=== PATIENT | male | born 1955 | race Caucasian/White ===

== ENCOUNTER 2025-02-19 12:43 | Inpatient (IN) | payer MEDICARE, SELFPAY ==
[2025-02-19] VITALS (16 sets, daily range): BP systolic 98–142; BP diastolic 52–76; PULSE 60–73; RESP 9–19; TEMP 36.2–36.9; O2SAT 94–100; BMI 27.2
--- NOTE | 2025-02-19 | ECG_ITS ---
Test Reason : SYNCOPE Blood Pressure : */* mmHG Vent. Rate : 62 BPM Atrial Rate : 62 BPM P-R Int : 186 ms QRS Dur : 106 ms QT Int : 470 ms P-R-T Axes : 25 -7 34 degrees QTcB Int : 477 ms Normal sinus rhythm Normal ECG No previous ECGs available Referred By: Generic ED Physician Electronically Signed By: Chinedu Raygoza
--- NOTE | ~2025-02-19 | CT_ITS ---
CLINICAL HISTORY: slurred speech weakness CT Brain without contrast Comparison: None FINDINGS: Cortical sulci: There is diffuse prominence of the cortical sulci compatible with age-related atrophy. Ventricles: Normal for age Brain parenchyma: There is patchy lucency throughout the deep white matter indicating chronic microvascular leukomalacia. Extra axial spaces: Normal Posterior Fossa: Normal Extracranial soft tissues: Normal Additional abnormality: None IMPRESSION: Age-related atrophy with chronic microvascular leukomalacia. No hemorrhage, mass effect, or acute findings identified. This document has been electronically signed by: Colin Christopher MD on 02/19/2025 14:01:57
--- NOTE | ~2025-02-19 | MR_ITS ---
CLINICAL HISTORY: left facial droop, dysarthria MR Brain without gadolinium Comparison: None provided Findings: Mild global cerebral volume loss, age-appropriate No restricted diffusion. No intra-axial mass or hemorrhage. No midline shift. No hydrocephalus. Vascular flow voids are intact. The orbits are normal. The sinuses and mastoid air cells are clear. No focal bone lesion. IMPRESSION: No acute infarct or other acute finding. This document has been electronically signed by: Cleveland Stone MD on 02/19/2025 19:42:12
--- NOTE | ~2025-02-19 | CT_ITS ---
CLINICAL HISTORY: slurred speech weakness CT angiography head and neck with contrast. 3D Postprocessing. Comparison: None provided Findings: Atherosclerosis calcification of the carotid bulb and cavernous segment of the internal carotid artery. No stenoses of the carotid arteries. Convoluted bilateral internal carotid artery. There is calcification of the origin of the right vertebral artery with possible stenoses. Intracranial arteries are patent. No aneurysm, dissection, hemodynamically significant stenoses, or occlusion. No abnormal intracranial enhancement. The visualized thyroid gland is unremarkable. No cervical mass or fluid collection. Lung apices clear. No acute fracture. IMPRESSION: No stenoses of the carotid arteries. Calcification of the origin of the right vertebral artery with possible stenoses. Patent head CTA. This document has been electronically signed by: Colin Christopher MD on 02/19/2025 14:55:55
--- NOTE | 2025-02-19 13:10 | PC.NURSE ---
kennedy from [place] while eating lunch. pt report he started to felt dizzy/nauseous. self ambulated to restroom where he then felt like he was going to pass out. self guided himself to floor. +witnessed syncopal episode for a few seconds. assisted by bystanders. no trauma noted. -headstrike, +thinners (xarelto). hx NV/stent placement. pt denies any chest pain/palpitations/sob. hx DM - blood sugar WNL upon arrival. upon ED arrival - pt a&ox4. vss and up to date. pt answering questions/following commands appropriately. vss and up to date. nsr on the radiation monitor. 20gIV in the right AC via EMS - patent/intact. labs obtained/ekg obtained by tech. pt currently denies any dizziness/lightheadedness/change in vision. pt states he is feeling better. currently bedside for support. on RA w/o difficulty - no sob/wob noted. respirations even/unlabored. plan of care ongoing. call rodrigues placed within reach.
[2025-02-19 13:11] LABS: MANUAL DIFF FLAG NO
[2025-02-19 13:14] LABS: Hematocrit 35.3 % (42.0-52.0); Hemoglobin 12.6 g/dl (14.0-18.0); Imm Gran Abs Auto 0.04 X10*3/uL (0.00-0.03); Imm Gran Pct Auto 0.4 % (0.0-0.4); Lymphocytes Absolute Auto 1.4 X10*3/uL (1.2-4.9); Mean Corpuscular HGB Conc 35.7 g/dl (31.0-36.0); Mean Corpuscular Hemoglobin 31.5 pg (27.0-33.0); Mean Corpuscular Volume 88.3 fL (80.0-98.0); NRBC Abs Auto 0.000 X10*3/uL (0.0-0.012); NRBC Pct Auto 0.0 /100WBC (0.0-0.2); Platelet Count 196 X10*3/uL (160-400); Red Blood Count 4.00 X10*6/uL (4.60-5.80); White Blood Count 9.2 X10*3/uL (4.8-10.8)
[2025-02-19 13:30] LABS: Alanine Aminotransferase 19 U/L (0-40); Albumin Level 4.0 g/dL (3.5-5.0); Alkaline Phosphatase 52 U/L (39-117); Anion Gap 13 (12-20); Aspartate Amino Transferase 19 U/L (5-37); Blood Urea Nitrogen 15 mg/dL (9-16); Calcium 8.7 mg/dL (8.4-10.2); Carbon Dioxide 23 mmol/L (22-29); Chloride 107 mmol/L (96-108); Creatinine Clr Calc Pharmacy 78.5; Estimated Glomerular Filt Rate > 60; INTERNATIONAL NORM RATIO 1.1 (0.9-1.1); Magnesium 1.6 mg/dL (1.6-2.6); Partial Thromboplastin Time 27.7 SEC (26.7-34.1); Potassium 4.4 mmol/L (3.3-5.1); Prothrombin Time 13.0 SEC (10.9-12.4); Sodium 139 mmol/L (135-145); Total Protein 6.2 g/dL (6.5-8.0)
--- NOTE | 2025-02-19 13:32 | ED.SYNCOPE ---
HPI - Syncope General Chief Complaint: Syncope Stated Complaint: FALL WITH LOC Time Seen by Provider: 02/19/25 12:50 Source: patient and EMS Mode of arrival: ambulatory Limitations: no limitations History of Present Illness ED Provider: CHU Luu HPI narrative: this is a 69-year-old male history of hypertension, diabetes, hyperlipidemia, on anticoagulation he tells me it is for his since presenting to the emergency department status post syncopal episode prior to arrival last known well time was around 12 15 this afternoon. Patient reports he was standing he felt lightheaded and like he was going to pass out he carefully lowered himself to the ground. No head strike or loss of consciousness. He reports he just feels overall unwell, weak, not himself and he tells me he is extremely thirsty. Related Data Allergies Allergy/AdvReac Type Severity Reaction Status Date / Time No Known Allergies Allergy Verified 02/19/25 12:56 Review of Systems Review of Systems: Yes all other systems are reviewed and are negative [facility] Past Medical History Attestation statement: The following information was validated with the patient. Source: old records reviewed and nursing notes reviewed Social History Social History Alcohol intake: current Alcohol intake frequency: holidays/special occasions only Smoked in Last 30 Days: No Use of substances other than those prescribed or required for medical reasons: No Advance Directives: Yes Advance Directives Information Provided: No Advance Directives on File: No Do you have a plan to hurt others: No Plan Physical Exam Exam: Exam: Appearance: Alert.? Oriented X3.? No acute distress.? Head: Normocephalic, atraumatic, no step-offs or deformities + left sided facial droop Eyes: Pupils equal, round and reactive to light.? ENT: Pharynx normal.? Neck: Normal inspection.? Neck supple.? CVS: Normal heart rate and rhythm.? Pulses normal.? Respiratory: No respiratory distress.? Breath sounds normal.? Abdomen: Soft and nontender.? Skin: Skin warm and dry.? Normal skin color.? Normal skin turgor.? Extremities: No lower extremity edema.? No calf ttp. 5/5 strength to bilateral upper and lower extremities . Negative Romberg and pronator drift. Back: No midline tenderness, no C-spine tenderness, full range of motion, no CVA tenderness bilaterally Neuro: Oriented X 3.? No motor deficit.? No sensory deficit. CN 2-12 intact . Normal [id number], iymv-pb-vncf. Vital Signs: Vital Signs: Last Vital Signs Temp 97.2 F 02/19/25 13:56 Pulse 67 02/19/25 14:53 Resp 13 02/19/25 14:53 BP 113/63 02/19/25 14:53 Pulse Ox 94 02/19/25 14:53 O2 Del Method Room Air 02/19/25 14:53 BMI result Body Mass Index 27.2 Course Reevaluation(s) Reevaluation #1: Patient's CBC with a normocytic anemia. No baseline labs to compare with however stable. Chemistry no acute findings needing intervention. Troponin negative, EKG nonischemic. Coagulation studies unremarkable. I did discuss this case with Dr. Santos neurology, explained to him he is on Xarelto now TNK candidate. I do not suspect LVO. Patient will likely be admitted to the hospital for CVA And syncope Time: 15:11 Medications Administered Discontinued Medications Generic Name Dose Route Start Last Admin Trade Name Freq PRN Reason Stop Dose Admin Iohexol 100 ml 02/19/25 13:50 02/19/25 13:51 Iohexol 350 Mg/Ml 100 Ml Infus..Btl IV 02/19/25 13:51 70 ml ONCE ONE Administration Medical Decision Making Medical Decision Making [facility] Narrative: 1333 69-year-old male presents status post syncopal episode prior to arrival. Only complaint is diffuse weakness and overall feeling unwell. He is on blood thinners. Last known well time 12:15. Upon my assessment I note that he has a slight left-sided facial droop and seems to be slightly slurring his speech PE no focal deficits but slight left sided facial droop and slight slurrring of speech Concerned for stroke. Will rule out ICH. will also rule out cardiac etiologies and electrolyte abnormalities. Plan stroke alert called at this time. NIH Stroke Scale/Score (NIHSS) from [employer] on 02/19/2025 All calculations should be rechecked by clinician prior to use RESULT SUMMARY: 2 points NIH Stroke Scale INPUTS: 1A: Level of consciousness ?> 0 = Alert; keenly responsive 1B: Ask month and age ?> 0 = Both questions right 1C: 'Blink eyes' & 'squeeze hands' ?> 0 = Performs both tasks 2: Horizontal extraocular movements ?> 0 = Normal 3: Visual smalls ?> 0 = No visual loss 4: Facial palsy ?> 1 = Minor paralysis (flat nasolabial fold, smile asymmetry) 5A: Left arm motor drift ?> 0 = No drift for 10 seconds 5B: Right arm motor drift ?> 0 = No drift for 10 seconds 6A: Left leg motor drift ?> 0 = No drift for 5 seconds 6B: Right leg motor drift ?> 0 = No drift for 5 seconds 7: Limb Ataxia ?> 0 = No ataxia 8: Sensation ?> 0 = Normal; no sensory loss 9: Language/aphasia ?> 1 = Mild-moderate aphasia: some obvious changes, without significant limitation 10: Dysarthria ?> 0 = Normal 11: Extinction/inattention ?> 0 = No abnormality Differential Diagnosis Differential Diagnoses: The differential diagnosis associated with the presentation includes ( Concerned for stroke. Will rule out ICH. will also rule out cardiac etiologies and electrolyte abnormalities.) Admission/Observation Consideration of admission/observation: Escalation of care including admission/observation considered (possible ) Consult Healthcare Provider Management of the patient was discussed with: Commissioner Of Conciliation ( Dr. Santos neurology) Lab Data MDM Lab Attestation statement: I reviewed the patient's lab results. 02/19/25 13:07 02/19/25 13:07 Labs: Lab Results 02/19/25 02/19/25 Range/Units 13:07 13:35 WBC 9.2 (4.8-10.8) X10*3/uL RBC 4.00 L (4.60-5.80) X10*6/uL Hgb 12.6 L (14.0-18.0) g/dl Hct 35.3 L (42.0-52.0) % MCV 88.3 (80.0-98.0) fL MCH 31.5 (27.0-33.0) pg MCHC 35.7 (31.0-36.0) g/dl RDW 13.1 (11.0-16.0) % Plt Count 196 (160-400) X10*3/uL MPV 10.3 (9.4-12.4) fL Immature Gran % (Auto) 0.4 (0.0-0.4) % Neut % (Auto) 72.6 (45-73) % Lymph % (Auto) 14.9 L (20-40) % [place] % (Auto) 8.2 (2-11) % Eos % (Auto) 3.1 (0-4) % Baso % (Auto) 0.8 (0-2) % Lymph # (Auto) 1.4 (1.2-4.9) X10*3/uL [place] # (Auto) 0.8 (0.1-1.2) X10*3/uL Eos # (Auto) 0.3 (0.0-0.4) X10*3/uL Baso # (Auto) 0.1 (0.0-0.2) X10*3/uL Abs Immat Gran (auto) 0.04 H (0.00-0.03) X10*3/uL Absolute Neuts (auto) 6.7 (2.0-8.3) x10*3/uL Absolute Nucleated RBC 0.000 (0.0-0.012) X10*3/uL Nucleated RBC % (auto) 0.0 (0.0-0.2) /100WBC PT 13.0 H (10.9-12.4) SEC INR 1.1 (0.9-1.1) APTT 27.7 (26.7-34.1) SEC Sodium 139 (135-145) mmol/L Potassium 4.4 (3.3-5.1) mmol/L Chloride 107 (96-108) mmol/L Carbon Dioxide 23 (22-29) mmol/L Anion Gap 13 (12-20) BUN 15 (9-16) mg/dL Creatinine 0.96 (0.5-1.4) mg/dL Estim Creat Clear Calc 78.5 Estimated GFR > 60 POC Glucose 154 H (60-115) mg/dL Random Glucose 135 H (60-115) mg/dL Calcium 8.7 (8.4-10.2) mg/dL Magnesium 1.6 (1.6-2.6) mg/dL Total Bilirubin 0.6 (0.0-1.0) mg/dL AST 19 (5-37) U/L ALT 19 (0-40) U/L Alkaline Phosphatase 52 (39-117) U/L Troponin I High Sens < 2.7 (<3.5-35.0) ng/L Total Protein 6.2 L (6.5-8.0) g/dL Albumin 4.0 (3.5-5.0) g/dL Independent Interpretation I performed an independent interpretation of an: EKG ( nonischemic) and CT Scan (negative for large vessel occlusion, intracranial hemorrhage) Radiology Impression Discussion of test interpretation with radiology: I have reviewed the radiologist's reading. Chronic Conditions Patient?s care impacted by: Hypertension Critical Care Time Critical Care Time Critical Care Time: Yes Total Critical Care Time: 45 Attestation: I attest to this time spent taking care of the patient, obtaining history, physical, reviewing labs, imaging, treatment of patients condition +/- specialist/hospitalist consult +/- procedure Discharge Plan Discharge Clinical Impression: Syncope, Acute CVA (cerebrovascular accident) Patient Disposition: Admitted As Inpatient Print Language: Latvian
[2025-02-19 13:37] LABS: Glucose, Whole Blood 154 mg/dL (60-115)
[2025-02-19 13:38] LABS: Troponin-I High Sensitivity < 2.7 ng/L (<3.5-35.0)
--- NOTE | 2025-02-19 13:42 | PC.NURSE ---
stroke work up initiated by provider. IV access tubing switched by this RN. POC obtained by tech. stroke PT/INR testing unable to be performed d/t equipment not being properly stocked in stroke box. provider bedside/aware. will obtain equipment needed from the lab/complete PT/INR testing when patient returns from CT. pt currently in CT at this time. plan of care ongoing.
--- NOTE | 2025-02-19 13:43 | MHC.EDTECH ---
this tech went to obtain stroke alert PT/INR, pieces of protocol equipment were missing, CHU jackson made aware, PA said to this tech to postpone PT/INR check, pt en route to CT scan.
[2025-02-19] MEDS: iohexoL 350 MG/ML 100 ML INFUS..BTL IV (13:51)
--- NOTE | 2025-02-19 14:25 | PC.NURSE ---
vss and up to date. nsr on the athletic monitor. neuros remain intact. face symmetrical. no slur in speech. strength equal bilaterally in all extremities. no pronator drift noted. pt currently denies any dizziness/headache/change in vision. on RA w/o difficulty. no sob/wob noted. respirations even/unlabored. pending scan results at this time. family bedside for support. plan of care ongoing. call rodrigues placed within reach.
--- NOTE | 2025-02-19 15:28 | P.HPHOSP_ITS ---
History of Present Illness Date of Service: 02/19/25 Chief Complaint: slurred speech 69M PMH CAD s/p stents, pafib on xarelto, DM, presented with syncope. Patient was feeling well on day of presentation. Went to restaurant, started to feel lightheaded dizzy nauseous. Went to restroom and urinated and then briefly passed out. Did not fall to the ground, did not have trauma. Lost consciousness for about 1 minute. EMS was called. On waking up patient was out of it noted left facial droop and dysarthria. This eventually resolved after about 1 hour. In ED, glucose normal, CTA head and neck with no acute stroke. Review of Systems 2 Review of Systems: Yes all other systems are reviewed and are negative [facility] Medical History (Updated 02/19/25 @ 15:33 by Matias Cabrera MD) CAD (coronary artery disease) Social History Alcohol intake: current Alcohol intake frequency: holidays/special occasions only Patient Tobacco Use Status: Never used Tobacco Smoked in Last 30 Days: No Use of substances other than those prescribed or required for medical reasons: No Advance Directives: Yes Advance Directives Information Provided: No Advance Directives on File: No Do you have a plan to hurt others: No Plan Nutrition Risks: No Nutritional Risk Meds Allergies Allergy/AdvReac Type Severity Reaction Status Date / Time No Known Allergies Allergy Verified 02/19/25 12:56 Active Medications: Current Medications Acetaminophen (Acetaminophen 325 Mg Tablet) 650 mg PO Q6H PRN PRN Reason: Pain, Mild 1-3,fever,headache Calcium Carbonate (Calcium Carbonate 750 Mg Tab.Chew) 750 mg PO Q4H PRN PRN Reason: Heartburn Magnesium Hydroxide (Milk Of Magnesia 30 Ml Oral.Susp) 30 ml PO DAILY PRN PRN Reason: Constipation Magnesium Hydroxide (Milk Of Magnesia 30 Ml Oral.Susp) 30 ml PO DAILY PRN PRN Reason: Constipation Melatonin (Melatonin 3 Mg Tablet) 6 mg PO BEDTIME PRN PRN Reason: Insomnia Sodium Chloride (0.9 % Sodium Chloride Flush 3 Ml Syringe) 3 ml IVFLUSH QSHIFT JUS Physical Exam 2 Vital Signs and Narrative: Vital Signs: Last Vital Signs Temp 97.2 F 02/19/25 13:56 Pulse 68 02/19/25 15:12 Resp 12 02/19/25 15:12 BP 113/60 02/19/25 15:12 Pulse Ox 97 02/19/25 15:12 O2 Del Method Room Air 02/19/25 15:12 BMI result Body Mass Index 27.2 General: AO X 3, no acute distress Resp: CTA bilateral, no accessory muscles used CVS: S1,S2,RRR GI: soft, non tender, non distended Neuro: motor grossly intact, alert Psych: appropriate affect, appropriate insight Results Labs 02/19/25 13:07 02/19/25 13:07 Labs: Laboratory Results - last 24 hr 02/19/25 02/19/25 13:07 13:35 MCV 88.3 MCH 31.5 MCHC 35.7 RDW 13.1 Plt Count 196 MPV 10.3 Immature Gran % (Auto) 0.4 Neut % (Auto) 72.6 Lymph % (Auto) 14.9 L [place] % (Auto) 8.2 Eos % (Auto) 3.1 Baso % (Auto) 0.8 Lymph # (Auto) 1.4 [place] # (Auto) 0.8 Eos # (Auto) 0.3 Baso # (Auto) 0.1 Abs Immat Gran (auto) 0.04 H Absolute Neuts (auto) 6.7 Absolute Nucleated RBC 0.000 Nucleated RBC % (auto) 0.0 PT 13.0 H INR 1.1 APTT 27.7 Anion Gap 13 Estim Creat Clear Calc 78.5 Estimated GFR > 60 POC Glucose 154 H Random Glucose 135 H Calcium 8.7 Magnesium 1.6 Total Bilirubin 0.6 AST 19 ALT 19 Alkaline Phosphatase 52 Total Protein 6.2 L Albumin 4.0 Assessment and Plan (1) CAD (coronary artery disease): Status: Acute Plan 69M PMH CAD s/p stents, pafib on xarelto, DM, presented with syncope syncope likely vasovagal vs orthostatic left facial droop and dysarthria rule out cva mri, echo, neuro eval, continue plavix, xarelto, statin cad xarelto, statin pafib xarelto, metoprolol DM insulin dvt prophylaxis - xarelto full code Quality Stroke Does the patient have a stroke diagnosis?: Yes Reason for No Anti-thrombotic by Day Two: N/A - Med Ordered VTE Prior VTE?: No VTE Risk Level:: Medical - moderate - high VTE Device Contraindication: Treatment Not Indicated VTE Drug Contraindication: N/A - Med Ordered
--- NOTE | 2025-02-19 16:07 | PC.NURSE ---
pt passed nursing swallow evaluation w/o difficulty. neuros remain intact.
[2025-02-19 16:41] LABS: Glucose, Whole Blood 113 mg/dL (60-115)
--- NOTE | 2025-02-19 16:52 | PHA.MEDREC ---
Pharmacy Consult ? Medication Reconciliation Pharmacy has completed the medication reconciliationMed rec complete. Spoke to patient and compared with pharmacy claim history. Patient had a very detailed medication list from home.
[2025-02-19] MEDS: 0.9 % Sodium Chloride Flush 3 ML SYRINGE IVFLUSH (16:53)
--- NOTE | 2025-02-19 17:01 | PC.NURSE ---
vss and up to date. nsr on the endocrinology teacher. neuros remain intact. pt currently pending MRI to be completed/pending bed assignment. bedside for support. plan of care ongoing. call rodrigues placed within reach.
--- NOTE | 2025-02-19 18:10 | PC.NURSE ---
pt to MRI at this time.
--- NOTE | 2025-02-19 18:41 | MHC.EDTECH ---
POC delayed to pt being in MRI
[2025-02-19 20:43] LABS: Glucose, Whole Blood 197 mg/dL (60-115)
[2025-02-20] VITALS (12 sets, daily range): BP systolic 109–156; BP diastolic 53–80; PULSE 63–73; RESP 16–18; TEMP 36.3–37.1; O2SAT 95–99; BMI 26.4
--- NOTE | 2025-02-20 | EEG_ITS ---
Reason For EEG: syncope Medications:Tylenol, atorvastatin calcium, calcium carbonate, clopidogrel bisulfate, insulin, Lisinopril, mom, metoprolol tartrate. Pantoprazole sodium, rivaroxaban, tolterodine tartrate History: H/O AFIB on anticoagulation, CAD, three cardiac stents- pt is rt handed - pt had witnessed event of dizziness with lightheaded feeling - pt collapsed to the ground with LOC- duration of LOC was a few seconds- no confusion, incontinence or shaking noted during event- Brain imaging revealed mild cortical cerebral and cerebellar atrophy in minimal microvascular ischemic changes Loss Prevention Coordinator Comments: During this study pt did not have symptoms of dizziness Photic stimulation: completed Hyperventilation: performed ? good effort - pt is active in home life Behavioral state: pleasant Conscious state: awake and drowsy This is a 16 channel EEG with an EKG lead. Patient is reported awake and drowsy during the tracing. Background EEG rhythm during wakefulness is low amplitude fast with no obvious asymmetry or paroxysmal tendency. Patient transitioned into drowsiness with theta range slowing with no obvious asymmetry or paroxysmal tendency. Photic stimulation does not produce any significant driving. Hyperventilation is unremarkable. No sharp wave spikes or paroxysmal tendency noted. Cardiac lead does not reveal any significant abnormality. Impression: No significant abnormality for his age is noted on this EEG. [facility]
--- NOTE | 2025-02-20 01:10 | PC.NURSE ---
pt placed in a hospital bed for comfort. axox4 ambulatory with steady gait. call rodrigues within reach.
[2025-02-20 06:38] LABS: Hematocrit 37.7 % (42.0-52.0); Hemoglobin 13.1 g/dl (14.0-18.0); Mean Corpuscular HGB Conc 34.7 g/dl (31.0-36.0); Mean Corpuscular Hemoglobin 31.0 pg (27.0-33.0); Mean Corpuscular Volume 89.1 fL (80.0-98.0); NRBC Abs Auto 0.000 X10*3/uL (0.0-0.012); NRBC Pct Auto 0.0 /100WBC (0.0-0.2); Platelet Count 181 X10*3/uL (160-400); Red Blood Count 4.23 X10*6/uL (4.60-5.80); White Blood Count 8.1 X10*3/uL (4.8-10.8)
[2025-02-20 06:51] LABS: Anion Gap 13 (12-20); Blood Urea Nitrogen 13 mg/dL (9-16); Calcium 9.4 mg/dL (8.4-10.2); Carbon Dioxide 26 mmol/L (22-29); Chloride 107 mmol/L (96-108); Cholesterol 111 mg/dL (<200); Creatinine Clr Calc Pharmacy 77.7; Estimated Glomerular Filt Rate > 60; HDL Cholesterol 30 mg/dL (>40); Potassium 4.7 mmol/L (3.3-5.1); Sodium 141 mmol/L (135-145); Triglycerides 109 mg/dL (<150)
[2025-02-20 07:00] LABS: Glucose, Whole Blood 132 mg/dL (60-115)
--- NOTE | 2025-02-20 08:47 | MHC.CM.PN ---
IMM given 02/20. Pt self-care, lives at home with his and daughter, they live in [place], were in town visiting family. Pts will transport him home at discharge. PCP: Dr. Nicky Soto
[2025-02-20] MEDS: Aspirin Enteric Coated 81 MG TABLET.DR PO (09:05)
--- NOTE | 2025-02-20 10:26 | P.CNNE_ITS ---
History of Present Illness Data of Consult Service Date: 02/20/25 Primary Care Provider: Unknown Physician HPI Reason for consult: Syncope 69 years old man who apparently has past medical history of atrial fibrillation on anticoagulation came to hospital after he passed out. He was in usual state of health originally from [place] was here to have dinner in a restaurant. While he was there he started feeling not well. He fell lightheaded and nauseous in at 1 point decided to go to restroom. While there he may have urinated but he said that he did not have particular urge for urination. After that while he was there, he felt even more lightheaded and dizzy and collapsed to the ground. He was helped by someone and brought out. He was noted to be unresponsive at least for few moments. He did not have recollection of the whole event. He was brought to hospital there is initial blood pressure 113/63 in a later reading was 99/67. He did not vomit in did not have diarrhea. There was no significant headache. He did not have any cold or flu-like illness and had not taken any chemical or alcohol. There was no associated cardiac symptom. Something similar has happened few years ago and a warm day when he was doing hectic work and climb some stairs and had similar feeling after urination. Review of Systems 2 Review of Systems: As per HPI [facility] Past Medical History Medical History (Updated 02/20/25 @ 10:33 by Karen Santos MD) CAD (coronary artery disease) Social History Social History Household Members: Spouse and Children Housing: House Do you presently have visiting nurse or other home services: No Alcohol intake: current Alcohol intake frequency: holidays/special occasions only Patient Tobacco Use Status: Never used Tobacco Smoked in Last 30 Days: No Use of substances other than those prescribed or required for medical reasons: No Have you been hit, kicked, punched, or otherwise hurt by someone within the past year? If so, by whom?: No Do you feel safe in your current relationship?: Yes Is there a partner from a previous relationship who is making you feel unsafe now?: No Are you made to feel afraid or neglected: No Advance Directives: No Advance Directives Information Provided: No Advance Directives on File: No Do you have a plan to hurt others: No Plan Recently lost weight without trying: No How much weight loss: Not applicable Eating poorly because of decreased appetite: No Nutrition screen score: 0 Nutrition Risks: No Nutritional Risk Poor oral hygiene: No service: No Meds Allergies Allergy/AdvReac Type Severity Reaction Status Date / Time No Known Allergies Allergy Verified 02/19/25 12:56 Active Medications: Current Medications Acetaminophen (Acetaminophen 325 Mg Tablet) 650 mg PO Q6H PRN PRN Reason: Pain, Mild 1-3,fever,headache Aspirin (Aspirin Enteric Coated 81 Mg Tablet.) 81 mg PO DAILY [facility] Last Admin: 02/20/25 09:05 Dose: 81 mg Atorvastatin Calcium (Atorvastatin Calcium 80 Mg Tablet) 80 mg PO BEDTIME [facility] Last Admin: 02/19/25 20:55 Dose: 80 mg Calcium Carbonate (Calcium Carbonate 750 Mg Tab.Chew) 750 mg PO Q4H PRN PRN Reason: Heartburn Clopidogrel Bisulfate (Clopidogrel Bisulfate 75 Mg Tablet) 75 mg PO BEDTIME [facility] Last Admin: 02/19/25 20:54 Dose: 75 mg Dextrose (Dextrose 50 % 25 Gm/50 Ml Syringe) 25 gm IVPUSH Q15M PRN; Protocol PRN Reason: per Hypoglycemia Standing Ord. Glucose (Glucose Gel 15 Gm Gel..Gram.) 15 gm PO Q15M PRN; Protocol PRN Reason: per Hypoglycemia Standing Ord. Insulin Human Lispro (Insulin Lispro 100 Unit/Ml 3 Ml Vial) 0 unit SUBCUT QIDACHS [facility]; Protocol Last Admin: 02/20/25 07:01 Dose: Not Given Lisinopril (Lisinopril 5 Mg Tablet) 5 mg PO BEDTIME [facility]; Protocol Last Admin: 02/19/25 20:54 Dose: 5 mg Magnesium Hydroxide (Milk Of Magnesia 30 Ml Oral.Susp) 30 ml PO DAILY PRN PRN Reason: Constipation Magnesium Hydroxide (Milk Of Magnesia 30 Ml Oral.Susp) 30 ml PO DAILY PRN PRN Reason: Constipation Melatonin (Melatonin 3 Mg Tablet) 6 mg PO BEDTIME PRN PRN Reason: Insomnia Metoprolol Tartrate (Metoprolol Tartrate 25 Mg Tablet) 25 mg PO BID [facility]; Protocol Last Admin: 02/20/25 09:04 Dose: 25 mg Pantoprazole Sodium (Pantoprazole Sodium 20 Mg Tablet.) 40 mg PO DAILY@1630 [facility] Ranolazine (Ranolazine 500 Mg Tab.Er.12h) 1,000 mg PO BID [facility] Last Admin: 02/20/25 09:05 Dose: 1,000 mg Rivaroxaban (Rivaroxaban 20 Mg Tablet) 20 mg PO DAILY@1700 [facility] Last Admin: 02/19/25 18:47 Dose: 20 mg Sodium Chloride (0.9 % Sodium Chloride Flush 3 Ml Syringe) 3 ml IVFLUSH QSHIFT [facility] Last Admin: 02/20/25 07:01 Dose: Not Given Tolterodine Tartrate (Tolterodine Tartrate La 2 Mg Cap.Er.24h) 2 mg PO DAILY [facility] Home Medications ?Medication ?Instructions ?Recorded ?Confirmed ?Last Taken ?Type aspirin 81 mg tablet 81 mg PO DAILY 02/19/2502/0402/19/25 History atorvastatin 80 mg tablet 80 mg PO BEDTIME 02/19/2502/18/25 History clopidogrel 75 mg tablet 75 mg PO BEDTIME 02/19/2502/18/25 History lisinopril 5 mg tablet 5 mg PO BEDTIME 02/19/2502/18/25 History metformin 500 mg tablet 1,000 mg PO BIDWM 02/19/25 0 02/19/25 02/19/25 History metoprolol tartrate 25 mg tablet 25 mg PO BID 02/19/25 02/19/25 02/19/25 History omeprazole 20 mg capsule,delayed 20 mg PO DAILY@1630 0 02/19/25 02/19/25 02/18/25 History release ranolazine 1,000 mg 1,000 mg PO BID 02/19/2502/19/25 History tablet,extended release,12 hr rivaroxaban 20 mg tablet (Xarelto) 20 mg PO DAILY@1700 02/19/25 02/19/25 02/18/25 History sitagliptin phosphate 50 mg tablet 50 mg PO BEDTIME 02/19/25 02/18/25 History (Januvia) tolterodine 2 mg tablet 2 mg PO DAILY 02/19/2502/1902/19/25 History Physical Exam 2 Vital Signs: Vital Signs: Last Vital Signs Temp 97.3 F 02/20/25 08:28 Pulse 69 02/20/25 08:28 Resp 18 02/20/25 08:28 BP 130/72 02/20/25 08:28 Pulse Ox 97 02/20/25 08:28 O2 Del Method Room Air 02/20/25 08:28 BMI result Body Mass Index 26.4 Neuro: Other: He is alert and awake with normal spontaneity of speech fluency comprehension and affect. There is tad flattening of right nasolabial fold. Apparently he was noted to have left-sided facial droop in emergency room. Visual smalls are full. There was no pronator drift. [id number] testing revealed mild tremor. Deep tendon reflexes were absent with flexor plantars. Speech was normal. Results Labs 02/20/25 06:05 02/20/25 06:05 Labs: Short CBC 02/19/25 02/20/25 Range/Units 13:07 06:05 WBC 9.2 8.1 (4.8-10.8) X10*3/uL Hgb 12.6 L 13.1 L (14.0-18.0) g/dl Hct 35.3 L 37.7 L (42.0-52.0) % Plt Count 196 181 (160-400) X10*3/uL BMP 02/19/25 02/20/25 13:07 06:05 Sodium 139 141 Potassium 4.4 4.7 Chloride 107 107 Carbon Dioxide 23 26 BUN 15 13 Creatinine 0.96 0.97 Calcium 8.7 9.4 D Liver Function 02/19/25 Range/Units 13:07 Total Bilirubin 0.6 (0.0-1.0) mg/dL AST 19 (5-37) U/L ALT 19 (0-40) U/L Alkaline Phosphatase 52 (39-117) U/L Albumin 4.0 (3.5-5.0) g/dL He had noncontrast head CT, CTA of brain and neck, an MRI of brain without contrast. These tests revealed mild cortical atrophy and little bit more so of cerebellar atrophy. Minimal microvascular ischemic changes were noted. EKG revealed sinus rhythm. Assessment and Plan (1) Syncope: Qualifiers: Syncope type: unspecified Qualified Code(s): R55 - Syncope and collapse Status: Acute 69 years old man who was brought to hospital after he became unresponsive. His symptoms started little while before that when he did not feel well. It culminated with him almost falling to the ground and then becoming unresponsive. He denied taking any new chemical or drug and there was no obvious trigger otherwise. His blood pressure was on the lower side but not low enough to explain the whole event. His examination at this time did not reveal any definitive focal finding. Brain imaging revealed mild cortical cerebral and cerebellar atrophy in minimal microvascular ischemic changes. Though vasovagal syncope, which could happened even with a viral syndrome or dehydration, is a possibility, I am concerned about seizure disorder. My recommendation is to obtain an EEG. The type of atrophy ICU in his brain imaging can be seen with to much exposure to alcohol. Even if he was not drinking that much, my recommendation would be to quit or minimize alcohol drinking to avoid any further problem. If this EEG would make the diagnosis, 1 could start him on treatment. If not, he should see a neurologist locally where he lives and proceed with further workup, maybe with ambulatory EEG. In the meantime, he should be aware of state [facility] and likely [facility] regulations according to which he should not drive or be involved in an activity that could put his life in danger such as swimming alone or sitting in a soaking tub alone. This is until his workup is complete in preventive measures have been taken. In [place] that duration could last up to 6 months. Procedures Date of Service Date of Service: 02/20/25
--- NOTE | 2025-02-20 11:13 | HO.PM.IMPN ---
Subjective Subjective Date of Service: 02/20/25 Interval History: feels back to baseline Physical Exam Exam: Exam: General: AO X 3, no acute distress Resp: CTA bilateral, no accessory muscles used CVS: S1,S2,RRR GI: soft, non tender, non distended Neuro: motor grossly intact, alert Psych: appropriate affect, appropriate insight Vital Signs: Vital Signs: Last Vital Signs Temp 97.6 F 02/20/25 11:08 Pulse 65 02/20/25 11:08 Resp 18 02/20/25 11:08 BP 133/65 02/20/25 11:08 Pulse Ox 96 02/20/25 11:08 O2 Del Method Room Air 02/20/25 11:08 BMI result Body Mass Index 26.4 Objective Data Active Medications Acetaminophen (Acetaminophen 325 Mg Tablet) 650 mg PO Q6H PRN PRN Reason: Pain, Mild 1-3,fever,headache Aspirin (Aspirin Enteric Coated 81 Mg Tablet.) 81 mg PO DAILY [facility] Last Admin: 02/20/25 09:05 Dose: 81 mg Documented By: MEGHAN Atorvastatin Calcium (Atorvastatin Calcium 80 Mg Tablet) 80 mg PO BEDTIME [facility] Last Admin: 02/19/25 20:55 Dose: 80 mg Documented By: SHANNA Calcium Carbonate (Calcium Carbonate 750 Mg Tab.Chew) 750 mg PO Q4H PRN PRN Reason: Heartburn Clopidogrel Bisulfate (Clopidogrel Bisulfate 75 Mg Tablet) 75 mg PO BEDTIME [facility] Last Admin: 02/19/25 20:54 Dose: 75 mg Documented By: SHANNA Dextrose (Dextrose 50 % 25 Gm/50 Ml Syringe) 25 gm IVPUSH Q15M PRN; Protocol PRN Reason: per Hypoglycemia Standing Ord. Glucose (Glucose Gel 15 Gm Gel..Gram.) 15 gm PO Q15M PRN; Protocol PRN Reason: per Hypoglycemia Standing Ord. Insulin Human Lispro (Insulin Lispro 100 Unit/Ml 3 Ml Vial) 0 unit SUBCUT QIDACHS [facility]; Protocol Last Admin: 02/20/25 07:01 Dose: Not Given Documented By: LEYLA Non-Admin Reason: POC 134 Lisinopril (Lisinopril 5 Mg Tablet) 5 mg PO BEDTIME [facility]; Protocol Last Admin: 02/19/25 20:54 Dose: 5 mg Documented By: HO.N-MACKT Magnesium Hydroxide (Milk Of Magnesia 30 Ml Oral.Susp) 30 ml PO DAILY PRN PRN Reason: Constipation Magnesium Hydroxide (Milk Of Magnesia 30 Ml Oral.Susp) 30 ml PO DAILY PRN PRN Reason: Constipation Melatonin (Melatonin 3 Mg Tablet) 6 mg PO BEDTIME PRN PRN Reason: Insomnia Metoprolol Tartrate (Metoprolol Tartrate 25 Mg Tablet) 25 mg PO BID [facility]; Protocol Last Admin: 02/20/25 09:04 Dose: 25 mg Documented By: MEGHAN Pantoprazole Sodium (Pantoprazole Sodium 20 Mg Tablet.Dr) 40 mg PO DAILY@1630 [facility] Ranolazine (Ranolazine 500 Mg Tab.Er.12h) 1,000 mg PO BID [facility] Last Admin: 02/20/25 09:05 Dose: 1,000 mg Documented By: MEGHAN Rivaroxaban (Rivaroxaban 20 Mg Tablet) 20 mg PO DAILY@1700 [facility] Last Admin: 02/19/25 18:47 Dose: 20 mg Documented By: ALEJANDRA Sodium Chloride (0.9 % Sodium Chloride Flush 3 Ml Syringe) 3 ml IVFLUSH QSHIFT [facility] Last Admin: 02/20/25 07:01 Dose: Not Given Documented By: LEYLA Non-Admin Reason: Patient Asleep Tolterodine Tartrate (Tolterodine Tartrate La 2 Mg Cap.Er.24h) 2 mg PO DAILY [facility] Labs 02/20/25 06:05 02/20/25 06:05 Labs: Laboratory Results - last 24 hr 02/19/25 02/19/25 02/19/25 13:07 13:35 16:37 MCV 88.3 MCH 31.5 MCHC 35.7 RDW 13.1 Plt Count 196 MPV 10.3 Immature Gran % (Auto) 0.4 Neut % (Auto) 72.6 Lymph % (Auto) 14.9 L [place] % (Auto) 8.2 Eos % (Auto) 3.1 Baso % (Auto) 0.8 Lymph # (Auto) 1.4 [place] # (Auto) 0.8 Eos # (Auto) 0.3 Baso # (Auto) 0.1 Abs Immat Gran (auto) 0.04 H Absolute Neuts (auto) 6.7 Absolute Nucleated RBC 0.000 Nucleated RBC % (auto) 0.0 PT 13.0 H INR 1.1 APTT 27.7 Anion Gap 13 Estim Creat Clear Calc 78.5 Estimated GFR > 60 POC Glucose 154 H 113 Random Glucose 135 H Calcium 8.7 Magnesium 1.6 Total Bilirubin 0.6 AST 19 ALT 19 Alkaline Phosphatase 52 Total Protein 6.2 L Albumin 4.0 Triglycerides Cholesterol LDL Cholesterol, Calc HDL Cholesterol 02/19/25 02/20/25 02/20/25 20:39 06:05 06:55 MCV 89.1 MCH 31.0 MCHC 34.7 RDW 13.2 Plt Count 181 MPV 10.4 Immature Gran % (Auto) Neut % (Auto) Lymph % (Auto) [place] % (Auto) Eos % (Auto) Baso % (Auto) Lymph # (Auto) [place] # (Auto) Eos # (Auto) Baso # (Auto) Abs Immat Gran (auto) Absolute Neuts (auto) Absolute Nucleated RBC 0.000 Nucleated RBC % (auto) 0.0 PT INR APTT Anion Gap 13 Estim Creat Clear Calc 77.7 Estimated GFR > 60 POC Glucose 197 H 132 H Random Glucose 145 H Calcium 9.4 D Magnesium Total Bilirubin AST ALT Alkaline Phosphatase Total Protein Albumin Triglycerides 109 Cholesterol 111 LDL Cholesterol, Calc 60 HDL Cholesterol 30 L Assessment and Plan (1) Syncope: Status: Acute Plan 69M PMH CAD s/p stents, pafib on xarelto, DM, presented with syncope syncope likely vasovagal vs orthostatic Neuro appreciated, concern for seizure will check EEG CVA ruled out cad xarelto, statin pafib xarelto, metoprolol DM insulin dvt prophylaxis - xarelto full code reason for continued hospitalization:eeg pending Quality Stroke Does the patient have a stroke diagnosis?: Yes Reason for No Anti-thrombotic by Day Two: N/A - Med Ordered VTE Prior VTE?: No VTE Risk Level:: Medical - moderate - high VTE Device Contraindication: Treatment Not Indicated VTE Drug Contraindication: N/A - Med Ordered
[2025-02-20 11:25] LABS: Glucose, Whole Blood 165 mg/dL (60-115)
[2025-02-20] MEDS: Tolterodine Tartrate LA 2 MG CAP.ER.24H PO (11:58)
[2025-02-20 16:14] LABS: Glucose, Whole Blood 145 mg/dL (60-115)
[2025-02-20 20:47] LABS: Glucose, Whole Blood 134 mg/dL (60-115)
[2025-02-20] MEDS: 0.9 % Sodium Chloride Flush 3 ML SYRINGE IVFLUSH (22:15)
[2025-02-21] VITALS: BP 131/72; PULSE 59; RESP 16; TEMP 36.3; O2SAT 96
[2025-02-21 04:00] VITALS: BP 137/68; PULSE 63; RESP 16; TEMP 36.4; O2SAT 98
[2025-02-21 07:48] LABS: Glucose, Whole Blood 144 mg/dL (60-115)
[2025-02-21 07:57] VITALS: BP 119/69; PULSE 64; RESP 18; TEMP 36.2; O2SAT 98
[2025-02-21] MEDS: Tolterodine Tartrate LA 2 MG CAP.ER.24H PO (08:03)
[2025-02-21] MEDS: Aspirin Enteric Coated 81 MG TABLET.DR PO (08:03)
[2025-02-21] MEDS: 0.9 % Sodium Chloride Flush 3 ML SYRINGE IVFLUSH (08:04)
[2025-02-21] MEDS: Milk of Magnesia 30 ML ORAL.SUSP PO (08:12)
--- NOTE | 2025-02-21 11:28 | PM.DS ---
DS: Providers Provider Date of Service: 02/21/25 Date of admission: 02/19/25 15:10 Date of discharge: 02/21/25 Primary care physician: Unknown Physician Consults: 02/19/25 15:10 Consult to Neurology Routine Consulting Provider: Karen Santos Reason for consultation: dysarthria DS: Diagnosis Discharge Diagnosis (1) Syncope: Status: Acute DS: Summary Hospital Course Hospital Course: from initial hpi: 69M PMH CAD s/p stents, pafib on xarelto, DM, presented with syncope. Patient was feeling well on day of presentation. Went to restaurant, started to feel lightheaded dizzy nauseous. Went to restroom and urinated and then briefly passed out. Did not fall to the ground, did not have trauma. Lost consciousness for about 1 minute. EMS was called. On waking up patient was out of it noted left facial droop and dysarthria. This eventually resolved after about 1 hour. In ED, glucose normal, CTA head and neck with no acute stroke. hospital course: Patient was admitted for syncope likely vasovagal versus orthostatic. Was seen by Neurology who recommended EEG which was unremarkable. CVA was ruled out with negative MRI. For coronary artery disease was continued on Xarelto and statin. For paroxysmal atrial fibrillation was continued on Xarelto and metoprolol. For diabetes was continued on insulin. Patient is back to baseline and will be discharged home. Time Attestation Discharge Coordination Time (in mins): 34 Quality: Safe Use of Opioids Does Pt have an Active Cancer Diagnosis on the Problem List?: No Quality: Stroke Does the patient have a stroke diagnosis?: No Physical Exam Exam: Exam: General: AO X 3, no acute distress Resp: CTA bilateral, no accessory muscles used CVS: S1,S2,RRR GI: soft, non tender, non distended Neuro: motor grossly intact, alert Psych: appropriate affect, appropriate insight Vital Signs: Vital Signs: Last Vital Signs Temp 97.2 F 02/21/25 07:57 Pulse 64 02/21/25 07:57 Resp 18 02/21/25 07:57 BP 119/69 02/21/25 07:57 Pulse Ox 98 02/21/25 07:57 O2 Del Method Room Air 02/21/25 07:57 BMI result Body Mass Index 26.4 DS: Data Data Completed and Pending Labs on day of discharge: Laboratory Results - last 24 hr 02/20/25 02/20/25 02/21/25 16:09 20:44 07:45 POC Glucose 145 H 134 H 144 H Discharge Plan Discharge Anticipated Discharge Date/Time: 02/21/25 11:27 Patient Disposition: Home, Self-Care Discharge Diagnosis: sycnope Referrals: Physician,Unknown J [Primary Care Provider, Medical] - 1 Week Discharge Medications: Continued ranolazine 1,000 mg Tablet Extended Release 12 Hr 1,000 mg PO BID metformin 500 mg Tablet 1,000 mg PO BIDWM Januvia 50 mg Tablet 50 mg PO BEDTIME atorvastatin 80 mg Tablet 80 mg PO BEDTIME clopidogrel 75 mg Tablet 75 mg PO BEDTIME tolterodine 2 mg Tablet 2 mg PO DAILY lisinopril 5 mg Tablet 5 mg PO BEDTIME metoprolol tartrate 25 mg Tablet 25 mg PO BID aspirin 81 mg Tablet 81 mg PO DAILY omeprazole 20 mg Capsule,Delayed Release(Dr/Ec) 20 mg PO DAILY@1630 Xarelto 20 mg Tablet 20 mg PO DAILY@1700 Rx Instructions: must administer with evening meal Discharge Orders: Discharge Order (Routine); Ordered 02/21/25 Ordered By: Matias Cabrera Diet: Advance to usual diet Activity on Discharge: As tolerated Stand Alone Forms: Patient Portal Discharge page Print Language: Algerian Care Plan Goals: Prevent syncope Health Concerns: Syncope Plan of Treatment: eeg negative Assessment: See above
[2025-02-21 12:00] VITALS: BP 138/68; PULSE 64; RESP 20; TEMP 36.1; O2SAT 98
--- NOTE | 2025-02-21 12:58 | MHC.CM.PN ---
Patient has been medically cleared for dc to home today, self care. Last IMM was addressed yesterday.
[2025-02-21 13:48] LABS: Glucose, Whole Blood 206 mg/dL (60-115)
== END 2025-02-21 14:06 | disposition home or self-care (01) | DRG 312 ==
LOC: HO.ED 15:13 → HO.EDOVER 15:46 → HO.IMC 02-20 07:21
PROVIDERS: Admitting Provider Internal Medicine; Emergency Provider Emergency Medicine; Visit Provider Internal Medicine
DX: R55 Syncope and collapse (principal); I25.10 Atherosclerotic heart disease of native coronary artery without angina pectoris; I48.0 Paroxysmal atrial fibrillation; E11.9 Type 2 diabetes mellitus without complications; R29.810 Facial weakness; R47.1 Dysarthria and anarthria; Z95.5 Presence of coronary angioplasty implant and graft; Z79.01 Long term (current) use of anticoagulants; Z79.02 Long term (current) use of antithrombotics/antiplatelets; Z79.82 Long term (current) use of aspirin; Z79.84 Long term (current) use of oral hypoglycemic drugs; Z79.899 Other long term (current) drug therapy
CPT/HCPCS: 36415; 70450; 70496; 70498; 70551; 80048; 80053; 80061; 82947; 83735; 84484; 85025; 85027; 85610; 85730; 93005; 95816; 97161; 97165; 99285; Q9967

== ENCOUNTER → 2025-02-19 13:03 | Outpatient (BNV) | payer MEDICARE, SELFPAY | PROVIDERS: Admitting Provider Internal Medicine; Emergency Provider Emergency Medicine; Visit Provider Internal Medicine Cardiovascular Disease | DX: R55 Syncope and collapse (principal) | CPT/HCPCS: 93010 ==

== ENCOUNTER → 2025-02-19 13:20 | Outpatient (BNV) | payer MEDICARE, SELFPAY | PROVIDERS: Emergency Provider Emergency Medicine; Visit Provider Internal Medicine | DX: R55 Syncope and collapse (principal) | CPT/HCPCS: 99223; 99232; 99239 ==

== ENCOUNTER → 2025-02-19 13:43 | Outpatient (BNV) | payer MEDICARE, SELFPAY | PROVIDERS: Emergency Provider Emergency Medicine; Visit Provider Nuclear Medicine | DX: R47.81 Slurred speech (principal); R29.810 Facial weakness; I67.82 Cerebral ischemia | CPT/HCPCS: 70450; 70496; 70498; 70551 ==

== ENCOUNTER 2025-02-19 15:10 | Outpatient (BNV) | payer MEDICARE, SELFPAY | END 2025-02-20 11:30 | PROVIDERS: Admitting Provider Internal Medicine; Emergency Provider Emergency Medicine; Visit Provider Psychiatry & Neurology Neurology | DX: R55 Syncope and collapse (principal) | CPT/HCPCS: 95816 ==

== ENCOUNTER → 2025-02-19 15:10 | Outpatient (BNV) | payer MEDICARE, SELFPAY | PROVIDERS: Admitting Provider Internal Medicine; Emergency Provider Emergency Medicine; Visit Provider Psychiatry & Neurology Neurology | DX: R55 Syncope and collapse (principal) | CPT/HCPCS: 99222 ==